=== PATIENT | male | born 1965 | race Hispanic/Latino ===

== ENCOUNTER 2019-02-08 09:21 | Inpatient (IN) | payer BC, OTHER ==
[2019-02-08] VITALS (22 sets, daily range): BP systolic 94–162; BP diastolic 60–98
[~2019-02-08] VITALS: Ht 152.4 cm; Wt 69.9 kg
[2019-02-08] MEDS ORDERED: ONDANSETRON HCL 4 MG/2 ML VIAL IVP PRN (10:00)
[2019-02-08] MEDS: ZOSYN 3.375GM+NS 50ML 50 ML IV SCH ×2 (10:00→17:30)
[2019-02-08] MEDS ORDERED: MORPHINE SULFATE 2 MG/ML 1ML SYG IVP PRN (10:00)
[2019-02-08] MEDS ORDERED: SODIUM CHLORIDE 0.9% 1000ML 1,000 ML IV SCH (10:00)
[2019-02-08] MEDS ORDERED: MORPHINE SULFATE 2 MG/ML 1ML SYG ONE (10:09)
[2019-02-08] MEDS ORDERED: ONDANSETRON HCL 4 MG/2 ML VIAL ONE ×2 (10:12→13:28)
[2019-02-08] MEDS ORDERED: ZOSYN 3.375GM+NS 50ML 50 ML IV ONE (10:13)
[2019-02-08] MEDS ORDERED: SODIUM CHLORIDE 0.9% 1000ML 1,000 ML IV ONE (10:13)
[2019-02-08 10:15] LABS: BASOPHILS % (AUTO) 0.5 % (0.0-5.0); EOSINOPHILS % (AUTO) 1.8 % (0.0-8.0); HEMATOCRIT 36.7 % (42-54); LYMPHOCYTES % (AUTO) 10.8 % (21.0-51.0); MEAN CORPUSCULAR HGB CONC 34.1 g/dL (32.0-36.0); MEAN CORPUSCULAR VOLUME 85.1 fL (79-99); MONOCYTES % (AUTO) 6.5 % (3.0-13.0); NEUTROPHILS % (AUTO) 80.4 % (40.0-77.0); PLATELET COUNT (AUTO) 330 K/uL (130-400); RED BLOOD CELL COUNT(AUTO) 4.31 MIL/uL (4.50-6.20); RED CELL DISTRIBUTION WIDTH 12.3 % (11.0-15.5); WHITE BLOOD COUNT (AUTO) 12.5 K/uL (4.8-10.8)
[2019-02-08 10:28] LABS: CREATININE 0.8 mg/dL (0.5-1.5)
[2019-02-08] MEDS ORDERED: INSULIN R NPO SSI SQ SCH (12:00)
--- NOTE | 2019-02-08 12:30 | NUR ---
PATIENT WENT FOR I&D. UNABLE TO TAKE ADMISSION PICTURE OF ABSCESS.
[2019-02-08] MEDS ORDERED: LIDOCAINE HCL MPF 1% 5ML VIAL ONE (12:56)
[2019-02-08] MEDS ORDERED: PROPOFOL 10 MG/ML 20ML VIAL IV ONE (12:56)
[2019-02-08] MEDS ORDERED: FENTANYL CITRATE PF 50 MCG/1 ML 2ML VIAL ONE (12:57)
[2019-02-08] MEDS ORDERED: MIDAZOLAM HCL 1 MG/ML 2ML VIAL ONE (12:57)
[2019-02-08] MEDS: SODIUM CHLORIDE 0.9% 1000ML 1,000 ML IV SCH (13:42)
[2019-02-08] MEDS ORDERED: MORPHINE SULFATE 2 MG/ML 1ML SYG IV PRN (13:45)
[2019-02-08] MEDS ORDERED: MORPHINE SULFATE 4 MG/1ML SYG IV PRN (13:45)
[2019-02-08] MEDS: HYDROMORPHONE HCL 0.5 MG/0.5 ML ML IVP PRN ×2 (17:32→21:22)
[2019-02-08] MEDS ORDERED: METF-444 PO (18:36)
[2019-02-08] MEDS ORDERED: AMLO-333 PO (18:36)
[2019-02-08] MEDS ORDERED: DEXTROSE 50%-WATER 50 ML DISP.SYRIN IV PRN (18:45)
[2019-02-08] MEDS ORDERED: GLUCAGON 1MG KIT 1 MG ML IM PRN (18:45)
[2019-02-08] MEDS: INSULIN HUMULIN R 100 UNIT/ML 3ML SQ SCH (20:49)
--- NOTE | 2019-02-08 20:50 | NUR ---
dressing change patient's dressing changed. cleaned wound with sterile water and betadine. applied 4 x 4's and abdominal pad around wound in scrotum and anal area. Packing was not removed as per MD order. will change dressing again at 03 am on 02/09/19 or as needed.
[2019-02-09] MEDS: ZOSYN 3.375GM+NS 50ML 50 ML IV SCH ×3 (01:05→17:40)
[2019-02-09] MEDS: SODIUM CHLORIDE 0.9% 1000ML 1,000 ML IV SCH ×2 (01:05→16:50)
[2019-02-09] MEDS: HYDROMORPHONE HCL 0.5 MG/0.5 ML ML IVP PRN ×6 (01:15→22:02)
--- NOTE | 2019-02-09 03:10 | NUR ---
dressing change cleaned wound with sterile water and placed new 4 x 4 gauze pads as well as absorbant pad on perineal area. patient able to tolerate. no issues.
[2019-02-09 03:30] VITALS: BP 148/77
[2019-02-09] MEDS: INSULIN HUMULIN R 100 UNIT/ML 3ML SQ SCH ×5 (06:18→21:13)
[2019-02-09] MEDS ORDERED: INSLAN SQ (07:58)
[2019-02-09 08:00] VITALS: BP 142/86
--- NOTE | 2019-02-09 09:00 | NUR ---
DRESSING CHANGED INTACT PACKING. 4X4 GAUZE CHANGED PER DR TURCIOS'S ORDERS. ABD PAD APPLIED ON TOP. PATIENT TOLERATED WELL. WILL CONTINUE TO MONITOR.
[2019-02-09 12:00] VITALS: BP 151/95
[2019-02-09 16:00] VITALS: BP 129/80
--- NOTE | 2019-02-09 16:20 | NUR ---
INITIAL: Met w pt this afternoon to discuss dcp. Pt mentions that he lives w spouse/dtr and son in law. Per pt he is independent w ambulation and ADLs. He does not own any DME or services. PEr pt he feels safe and comfortable [place]. CM to continue to follow and wait for Md recommendations. Addendum: 02/09/19 at 1622 by IESHA PAREDES Amended: Links added.
[2019-02-09] MEDS: METFORMIN HCL 500 MG TABLET PO SCH (16:48)
[2019-02-09 20:05] VITALS: BP 125/86
[2019-02-09] MEDS: INSULIN GLARGINE 100 UNITS/ML 10 ML VIAL SQ SCH (21:11)
[2019-02-09 23:49] VITALS: BP 134/85
[2019-02-10] MEDS: ZOSYN 3.375GM+NS 50ML 50 ML IV SCH ×3 (01:19→17:12)
[2019-02-10] MEDS: HYDROMORPHONE HCL 0.5 MG/0.5 ML ML IVP PRN ×5 (02:17→22:50)
[2019-02-10 03:54] VITALS: BP 125/79
[2019-02-10] MEDS: METFORMIN HCL 500 MG TABLET PO SCH ×2 (06:43→17:12)
[2019-02-10] MEDS: INSULIN HUMULIN R 100 UNIT/ML 3ML SQ SCH ×4 (06:43→20:59)
[2019-02-10 08:00] VITALS: BP 145/80
[2019-02-10] MEDS: AMLODIPINE BESYLATE 5 MG TAB PO SCH (09:08)
[2019-02-10] MEDS: LOSARTAN 100 MG TABLET PO SCH (09:08)
[2019-02-10 11:30] VITALS: BP 137/85
[2019-02-10 16:00] VITALS: BP 143/87
[2019-02-10] MEDS: SODIUM CHLORIDE 0.9% 1000ML 1,000 ML IV SCH ×2 (17:13→22:50)
[2019-02-10 19:56] VITALS: BP 151/91
[2019-02-10] MEDS: INSULIN GLARGINE 100 UNITS/ML 10 ML VIAL SQ SCH (20:59)
[2019-02-10 23:34] VITALS: BP 124/83
[2019-02-11] MEDS: ZOSYN 3.375GM+NS 50ML 50 ML IV SCH ×3 (02:00→18:11)
[2019-02-11] MEDS: HYDROMORPHONE HCL 0.5 MG/0.5 ML ML IVP PRN ×3 (03:37→15:55)
[2019-02-11 03:45] VITALS: BP 157/95
[2019-02-11] MEDS: METFORMIN HCL 500 MG TABLET PO SCH ×2 (06:33→15:56)
[2019-02-11] MEDS: INSULIN HUMULIN R 100 UNIT/ML 3ML SQ SCH ×4 (06:34→21:00)
[2019-02-11 07:00] VITALS: BP 144/75
[2019-02-11] MEDS: LOSARTAN 100 MG TABLET PO SCH (08:38)
[2019-02-11] MEDS: AMLODIPINE BESYLATE 5 MG TAB PO SCH (08:40)
[2019-02-11 11:00] VITALS: BP 161/83
[2019-02-11 16:00] VITALS: BP 152/86
[2019-02-11 20:05] VITALS: BP 149/91
[2019-02-11] MEDS: INSULIN GLARGINE 100 UNITS/ML 10 ML VIAL SQ SCH (21:21)
[2019-02-11] MEDS: SODIUM CHLORIDE 0.9% 1000ML 1,000 ML IV SCH (21:42)
[2019-02-11 23:33] VITALS: BP 125/78
[2019-02-12] VITALS (27 sets, daily range): BP systolic 106–156; BP diastolic 71–91
[2019-02-12] MEDS: ZOSYN 3.375GM+NS 50ML 50 ML IV SCH ×3 (01:05→11:23)
[2019-02-12 05:48] LABS: HEMATOCRIT 30.8 % (42-54); LYMPHOCYTES % (AUTO) 24.6 % (21.0-51.0); MEAN CORPUSCULAR HEMOGLOBIN 29.5 pg (27.0-33.0); MEAN CORPUSCULAR HGB CONC 34.5 g/dL (32.0-36.0); MEAN CORPUSCULAR VOLUME 85.3 fL (79-99); MONOCYTES % (AUTO) 9.3 % (3.0-13.0); NEUTROPHILS % (AUTO) 62.1 % (40.0-77.0); PLATELET COUNT (AUTO) 320 K/uL (130-400); RED BLOOD CELL COUNT(AUTO) 3.61 MIL/uL (4.50-6.20); RED CELL DISTRIBUTION WIDTH 12.1 % (11.0-15.5); WHITE BLOOD COUNT (AUTO) 7.9 K/uL (4.8-10.8)
[2019-02-12 05:55] LABS: CREATININE 0.6 mg/dL (0.5-1.5); POTASSIUM 3.2 mmol/L (3.5-5.1)
[2019-02-12 06:01] LABS: INR 1.05 (0.85-1.15)
[2019-02-12] MEDS: INSULIN HUMULIN R 100 UNIT/ML 3ML SQ SCH ×4 (06:23→20:39)
[2019-02-12] MEDS: METFORMIN HCL 500 MG TABLET PO SCH ×2 (06:23→16:56)
[2019-02-12] MEDS: AMLODIPINE BESYLATE 5 MG TAB PO SCH (09:00)
[2019-02-12] MEDS: LOSARTAN 100 MG TABLET PO SCH (09:00)
[2019-02-12] MEDS ORDERED: MIDAZOLAM HCL 1 MG/ML 2ML VIAL ONE (11:15)
[2019-02-12] MEDS ORDERED: FENTANYL CITRATE PF 50 MCG/1 ML 2ML VIAL ONE (11:15)
[2019-02-12] MEDS ORDERED: LIDOCAINE PF 2% 5ML ABBOJECT ONE (11:15)
[2019-02-12] MEDS ORDERED: PROPOFOL 10 MG/ML 20ML VIAL IV ONE (11:15)
[2019-02-12] MEDS: SODIUM CHLORIDE 0.9% 1000ML 1,000 ML IV SCH ×2 (12:01→12:10)
[2019-02-12] MEDS ORDERED: MEPERIDINE-PF 25 MG/ML SYG ONE (12:47)
[2019-02-12] MEDS ORDERED: MORPHINE SULFATE 2 MG/ML 1ML SYG ONE (13:14)
--- NOTE | 2019-02-12 13:42 | NUR ---
patient brought by pacu. patient in no acute distress and denies pain at this time. shook splicer in vital signs machine for post op vitals
[2019-02-12] MEDS: HYDROMORPHONE HCL 0.5 MG/0.5 ML ML IVP PRN ×2 (16:56→20:40)
[2019-02-12] MEDS: INSULIN GLARGINE 100 UNITS/ML 10 ML VIAL SQ SCH (20:39)
[2019-02-13] MEDS: HYDROMORPHONE HCL 0.5 MG/0.5 ML ML IVP PRN ×5 (00:47→23:16)
[2019-02-13] MEDS: ZOSYN 3.375GM+NS 50ML 50 ML IV SCH ×3 (01:56→18:28)
[2019-02-13 03:32] VITALS: BP 142/81
[2019-02-13] MEDS: INSULIN HUMULIN R 100 UNIT/ML 3ML SQ SCH ×4 (07:24→20:45)
[2019-02-13 08:00] VITALS: BP 143/80
[2019-02-13] MEDS: LOSARTAN 100 MG TABLET PO SCH (08:00)
[2019-02-13] MEDS: AMLODIPINE BESYLATE 5 MG TAB PO SCH (08:00)
[2019-02-13] MEDS: METFORMIN HCL 500 MG TABLET PO SCH ×2 (08:00→18:28)
[2019-02-13] MEDS: SODIUM CHLORIDE 0.9% 1000ML 1,000 ML IV SCH (09:56)
[2019-02-13 12:00] VITALS: BP 138/88
[2019-02-13 16:00] VITALS: BP 148/86
[2019-02-13 19:41] VITALS: BP 144/81
[2019-02-13] MEDS: INSULIN GLARGINE 100 UNITS/ML 10 ML VIAL SQ SCH (21:00)
[2019-02-13 23:31] VITALS: BP 139/79
[2019-02-14] MEDS: ZOSYN 3.375GM+NS 50ML 50 ML IV SCH ×3 (02:59→17:26)
[2019-02-14] MEDS: HYDROMORPHONE HCL 0.5 MG/0.5 ML ML IVP PRN ×4 (03:47→20:32)
[2019-02-14 04:03] VITALS: BP 151/83
[2019-02-14] MEDS: INSULIN HUMULIN R 100 UNIT/ML 3ML SQ SCH ×4 (06:20→21:00)
[2019-02-14 08:00] VITALS: BP 149/85
[2019-02-14] MEDS: LOSARTAN 100 MG TABLET PO SCH (08:41)
[2019-02-14] MEDS: METFORMIN HCL 500 MG TABLET PO SCH ×2 (08:41→17:17)
[2019-02-14] MEDS: AMLODIPINE BESYLATE 5 MG TAB PO SCH (08:41)
--- NOTE | 2019-02-14 10:15 | NUR ---
SEEN BY DR. TURCIOS WHO ASSESSED PT'S WOUNDS. WET TO DRY DRESSING WITH MOIST GAUZE PACKING DONE, SPOUSE AT BEDSIDE DURING DRESSING CHANGE, INSTRUCTED HOW TO DO THE DRESSING CHANGE. UNDERSTAND VERBALIZED. SCANT SEROSANGUINOUS DRAINAGE NOTED TO DRESSING.
[2019-02-14 12:00] VITALS: BP 142/80
--- NOTE | 2019-02-14 12:30 | NUR ---
DC PLAN TO HOME FOR TOMORROW PER OSBALDO YESTERDAY PT'S TO LEARN DSG CHANGES. PT BIRTHDAY TODAY . IN [employer] SPIRITS, PAIN LESS, ANTICIPATING DISCHARGE. WORK EXCUSE FOR GIVEN Addendum: 02/14/19 at 1315 by NIKOS SOTO RN CM Amended: Links added.
[2019-02-14] MEDS: SODIUM CHLORIDE 0.9% 1000ML 1,000 ML IV SCH (13:06)
--- NOTE | 2019-02-14 14:30 | NUR ---
Nutrition intervention: RD screen for LOS. Pt admitted for perianal, perirectal, scrotal abscess. Currently on CCD 75gm diet with good oral intake. Pt reports no nutritional concerns at the moment. Pt has been offered Mango supplementation to help promote wound healing, pt agrees to take it. Recommendations: Continue current diet therapy. Mango BID to promote wound healing. Consult RD as nutrition concerns arise. Addendum: 02/14/19 at [address] RD Amended: Links added.
[2019-02-14 16:00] VITALS: BP 139/82
--- NOTE | 2019-02-14 19:55 | NUR ---
WET TO DRY DRESSING CHANGE DONE BY SPOUSE, SUPERVISED BY ME. SMALL AMOUNT OF SEROSANGUINOUS DRAINAGE NOTED TO DRESSING. TOLERATED DRESSING CHANGE WELL.
[2019-02-14 20:00] VITALS: BP 164/94
[2019-02-14] MEDS: INSULIN GLARGINE 100 UNITS/ML 10 ML VIAL SQ SCH (21:47)
[2019-02-15] VITALS: BP 146/82
[2019-02-15] MEDS: HYDROMORPHONE HCL 0.5 MG/0.5 ML ML IVP PRN ×2 (01:13→11:10)
[2019-02-15] MEDS: ZOSYN 3.375GM+NS 50ML 50 ML IV SCH ×2 (02:01→11:09)
[2019-02-15 04:00] VITALS: BP 135/79
[2019-02-15] MEDS: INSULIN HUMULIN R 100 UNIT/ML 3ML SQ SCH ×2 (06:48→11:30)
[2019-02-15 07:00] VITALS: BP 143/90
[2019-02-15] MEDS: METFORMIN HCL 500 MG TABLET PO SCH (08:51)
[2019-02-15] MEDS: LOSARTAN 100 MG TABLET PO SCH (08:51)
[2019-02-15] MEDS: AMLODIPINE BESYLATE 5 MG TAB PO SCH (08:52)
[2019-02-15 11:00] VITALS: BP 142/94
[2019-02-15] MEDS ORDERED: LEVO500T2 PO (12:13)
[2019-02-15] MEDS ORDERED: ACET1TAB12 PO (12:13)
== END 2019-02-15 16:15 | disposition home or self-care (01) | DRG 717 ==
LOC: EDH 09:21 → EDHIP 09:22 → 3CH 11:42
PROVIDERS: ADMIT Surgery; ATTEND Surgery
PROC: 0VB50ZZ Excision of Scrotum, Open Approach (ICD-10-PCS; 2019-02-08)
PROC: 0JBB0ZZ Excision of Perineum Subcutaneous Tissue and Fascia, Open Approach (ICD-10-PCS; principal; 2019-02-08 12:58)
PROC: 0VB50ZZ Excision of Scrotum, Open Approach (ICD-10-PCS; 2019-02-10)
PROC: 0JBB0ZZ Excision of Perineum Subcutaneous Tissue and Fascia, Open Approach (ICD-10-PCS; 2019-02-10)
DX: N49.2 Inflammatory disorders of scrotum (principal); L02.215 Cutaneous abscess of perineum; E11.52 Type 2 diabetes mellitus with diabetic peripheral angiopathy with gangrene; K61.1 Rectal abscess; I10 Essential (primary) hypertension; Z79.4 Long term (current) use of insulin
CPT/HCPCS: 36415; 80048; 82948; 85025; 85610; 85730; 87070; 87076; 87077; 87186; 87205; 88304; 93005; G0378; J1170; J1815; J2001; J2175; J2250; J2405; J2543; J2704; J3010; J3490; J7030

== ENCOUNTER 2023-08-01 19:30 | Emergency (ER) | payer BC ==
[~2023-08-01] VITALS: Ht 172.7 cm; Wt 76.7 kg
[~2023-08-01 19:30] MED LIST: AEC81 PO; AMLO-388 PO; INSU100I94 SQ; METF-444 PO; VITA800012 PO
[2023-08-01 19:48] VITALS: BP 163/81; PULSE 89; RESP 18
[2023-08-01] MEDS: IBUPROFEN 800 MG TAB PO ONE (20:22)
[2023-08-01] MEDS: IBUPROFEN 600 MG TABLET ONE (20:22)
[2023-08-01] MEDS ORDERED: IBUP-2077 PO (20:40)
== END 2023-08-01 20:47 | disposition home or self-care (01) ==
LOC: EDH 19:30
DX: S90.31XA Contusion of right foot, initial encounter (principal); E11.9 Type 2 diabetes mellitus without complications; I10 Essential (primary) hypertension; F17.200 Nicotine dependence, unspecified, uncomplicated; Z79.82 Long term (current) use of aspirin; Z79.899 Other long term (current) drug therapy; W01.0XXA Fall on same level from slipping, tripping and stumbling without subsequent striking against object, initial encounter; Y93.89 Activity, other specified; Y92.89 Other specified places as the place of occurrence of the external cause; Y99.8 Other external cause status
CPT/HCPCS: 73630

== ENCOUNTER 2023-08-04 20:02 | Emergency (ER) | payer BC ==
[~2023-08-04] VITALS: Ht 172.7 cm; Wt 76.7 kg
[~2023-08-04 20:02] MED LIST changes: +IBUP-2077 PO
[2023-08-04 21:04] LABS: BASOPHILS # (AUTO) 0.08 K/uL (0.00-0.20); BASOPHILS % (AUTO) 0.8 % (0.0-5.0); EOSINOPHILS # (AUTO) 0.44 K/uL (0.00-0.70); EOSINOPHILS % (AUTO) 4.2 % (0.0-8.0); HEMATOCRIT 32.2 % (42-54); IMMATURE GRANULOCYTE ABSOLUTE 0.06 K/uL (0-1); LYMPHOCYTES # (AUTO) 2.2 K/uL (1.0-4.8); LYMPHOCYTES % (AUTO) 20.5 % (21.0-51.0); MEAN CORPUSCULAR HGB CONC 33.5 g/dL (32.0-36.0); MEAN CORPUSCULAR VOLUME 83.4 fL (79-99); MONOCYTES # (AUTO) 0.9 K/uL (0.1-1.0); MONOCYTES % (AUTO) 8.8 % (3.0-13.0); NEUTROPHILS # (AUTO) 6.8 K/uL (1.8-7.7); NEUTROPHILS % (AUTO) 65.1 % (40.0-77.0); PLATELET COUNT (AUTO) 229 K/uL (130-400); RED BLOOD CELL COUNT(AUTO) 3.86 MIL/uL (4.50-6.20); RED CELL DISTRIBUTION WIDTH 13.3 % (11.0-15.5); WHITE BLOOD COUNT (AUTO) 10.5 K/uL (4.8-10.8)
[2023-08-04 21:07] VITALS: BP 144/72; PULSE 89; RESP 18; O2SAT 99
[2023-08-04 21:12] LABS: APPEARANCE,URINE CLEAR (CLEAR); BILIRUBIN,URINE NEGATIVE (NEGATIVE); COLOR,URINE LIGHT-YELLOW (YELLOW); GLUCOSE, URINE (UA) 70 mg/dL (NEGATIVE); KETONES,URINE NEGATIVE (NEGATIVE); LEUKOCYTE ESTERASE ,URINE NEGATIVE Leu/uL (NEGATIVE); NITRATE,URINE NEGATIVE (NEGATIVE); OCCULT BLOOD,URINE NEGATIVE (NEGATIVE); PROTEIN,URINE 20 mg/dL (NEGATIVE); UROBILINOGEN,URINE 0.2 mg/dL (0.2-1.0)
[2023-08-04 21:13] LABS: ADD UA MICROSCOPIC YES
[2023-08-04 21:14] LABS: MUCUS,URINE RARE LPF (None Seen); RBC,URINE 0-1 /HPF (0-1)
[2023-08-04 21:20] LABS: CREATININE 1.4 mg/dL (0.5-1.3); POTASSIUM 4.9 mmol/L (3.5-5.1)
[2023-08-04 21:25] LABS: ALBUMIN 3.6 g/dL (3.5-5.0); BILIRUBIN,TOTAL 0.3 mg/dL (0.2-1.0)
[2023-08-04] MEDS ORDERED: DOXY100T2 PO (21:38)
== END 2023-08-04 22:09 | disposition home or self-care (01) ==
LOC: EDH 20:02
DX: E11.621 Type 2 diabetes mellitus with foot ulcer (principal); L97.519 Non-pressure chronic ulcer of other part of right foot with unspecified severity; I10 Essential (primary) hypertension
CPT/HCPCS: 36415; 73562; 73660; 80053; 81001; 83605; 85025; 87040